=== PATIENT | female | born 1990 | race Caucasian/White ===

== ENCOUNTER 2019-07-01 04:36 | Emergency (ER) | payer SELFPAY ==
[~2019-07-01] VITALS: Ht 170.2 cm; Wt 59.0 kg
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
--- NOTE | 2019-07-01 04:52 | NUR ---
PT ELBA PALCED IN LOCKER, PT PLACED IN GOWN. VSS.
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
[2019-07-01 05:36] LABS: BASOPHILS % (AUTO) 0.5 % (0.0-2.0); EOSINOPHILS % (AUTO) 4.6 % (0.0-6.0); HEMATOCRIT 48 % (33-45); HEMOGLOBIN 15.9 g/dL (11.5-14.8); LYMPHOCYTES # (AUTO) 1.6 /CMM (0.8-4.8); LYMPHOCYTES % (AUTO) 15.8 % (20.0-44.0); MEAN CORPUSCULAR HGB CONC 33 g/dl (31.0-36.0); MEAN CORPUSCULAR VOLUME 94 fL (82-100); MONOCYTES # (AUTO) 0.7 /CMM (0.1-1.30); MONOCYTES % (AUTO) 6.7 % (2.0-12.0); NEUTROPHILS # (AUTO) 7.5 /CMM (1.8-8.9); NEUTROPHILS % (AUTO) 72.4 % (43.0-81.0); PLATELET COUNT (AUTO) 310 /CMM (150-450); RED BLOOD CELL COUNT(AUTO) 5.07 MIL/uL (4.0-5.2); WHITE BLOOD COUNT (AUTO) 10.4 K/uL (4.3-11.0)
[2019-07-01 05:44] LABS: CALCIUM, SERUM 9.6 mg/dL (8.5-10.1); CARBON DIOXIDE 27 mmol/L (21-32); CHLORIDE 101 mmol/L (98-107); GLUCOSE 93 mg/dL (74-106); POTASSIUM 4.6 mmol/L (3.5-5.1); SODIUM SERUM 137 mmol/L (136-145); UREA NITROGEN, BLOOD 19 mg/dL (7-18)
[2019-07-01 05:50] LABS: ACETAMINOPHEN 0 ug/ml (10-30); ALANINE AMINOTRANSFERASE 13 U/L (12-78); ALCOHOL, BLOOD < 3 mg/dL (0-0); ALKALINE PHOSPHATASE 62 U/L (46-116); ASPARTATE AMINOTRANSFERASE 16 U/L (15-37); BILIRUBIN,DIRECT 0.3 mg/dL (0.0-0.2); BILIRUBIN,TOTAL 1.3 mg/dL (0.2-1.0); SALICYLATE < 0.2 mg/dL (2.8-20.0)
[2019-07-01] MEDS ORDERED: TDAP [DIPH/PERTUSSIS/TET] 0.5 ML VIAL IM ONE ×2 (05:58→06:00)
--- NOTE | 2019-07-01 06:06 | NUR ---
PATIENT UNABLE TO GIVE URINE SAMPLE, PROVIDED WITH WATER.
--- NOTE | 2019-07-01 06:06 | NUR ---
EMT AT BEDSIDE FOR WOUND CARE ON LEFT SHOULDER
--- NOTE | 2019-07-01 09:00 | NUR ---
Patient is awake alert non distress @ this time remain 5150 no family patient able to ambulated urine obtained and send to lab ,breakfast given ,sitter @ bedside .
--- NOTE | 2019-07-01 09:38 | NUR ---
Patient brother called Tony Stanley [phone]
--- NOTE | 2019-07-01 09:39 | NUR ---
PAGED REUBEN, NO ANSWER, LEFT MESSGAGE.
--- NOTE | 2019-07-01 10:29 | NUR ---
REUBEN CALLED BACK. WILL SHOW UP IN 1 HOUR.
--- NOTE | 2019-07-01 10:42 | NUR ---
Patient asleep but arousable remain 5150 patient calm @ this time non distress continue to monitor
--- NOTE | 2019-07-01 13:35 | NUR ---
Patient awake alert noted ambulatory .patient declined custodial stated her Mom is coming to pick her up.
--- NOTE | 2019-07-01 13:36 | NUR ---
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
--- NOTE | 2019-07-01 14:30 | NUR ---
PATIENT STATED mOM IS COMING TO PICK HER UP ,PATIENT AMBULATORY DECLINED [facility] GOING BACK TO PREVIOUS LIVING ARRANGEMENT SHE STATES SHE WILL WAIT FOR HER MOM @ WAITING AREA
[2019-07-01 14:34] VITALS: BP 133/78
== END 2019-07-01 14:35 | disposition home or self-care (01) ==
LOC: ER 04:36
DX: S80.01XA Contusion of right knee, initial encounter (principal); S40.212A Abrasion of left shoulder, initial encounter; T76.91XA Unspecified adult maltreatment, suspected, initial encounter; F32.9 Major depressive disorder, single episode, unspecified; Z59.0 Homelessness; Y08.89XA Assault by other specified means, initial encounter; Y93.89 Activity, other specified; Y92.89 Other specified places as the place of occurrence of the external cause; Y99.8 Other external cause status
CPT/HCPCS: 36415; 80048; 80076; 80305; 80307; 80329; 84703; 85025; 90471; 90715; 99285; G0480

== ENCOUNTER 2021-04-05 10:50 | Emergency (ER) | payer SELFPAY ==
[~2021-04-05] VITALS: Ht 170.2 cm; Wt 66.2 kg
[2021-04-05 11:07] VITALS: BP 126/79
--- NOTE | 2021-04-05 11:08 | NUR ---
[id number] home c/o headache, weakness, nausea since yesterday. PT A/OX4. TOLERATING R/A WELL WITH NO SOB.
[2021-04-05] MEDS ORDERED: KETOROLAC TROMETHAMINE INJ 30 MG/ML VIAL ONE (11:26)
[2021-04-05] MEDS ORDERED: KETOROLAC TROMETHAMINE INJ 60 MG/2 ML VIAL IM ONE (11:30)
--- NOTE | 2021-04-05 11:54 | NUR ---
COVID ANTIEN AND INFLUENZA SWAB COLLECTED AND SENT TO LAB
--- NOTE | 2021-04-05 12:03 | NUR ---
URINE SAMPLE COLLECTED AND SENT TO LAB
--- NOTE | 2021-04-05 12:50 | NUR ---
YRIS, MOM, , CALLED.
--- NOTE | 2021-04-05 13:09 | NUR ---
WHEELED OUT VIA GURNEY BY [employer] FOR CT SCAN.
[2021-04-05] MEDS ORDERED: HYDR-3980 PO (13:56)
--- NOTE | 2021-04-05 14:07 | NUR ---
Patient discharged to home in stable condition. Written and verbal after care instructions given. Patient verbalizes understanding of instruction.
== END 2021-04-05 14:08 | disposition home or self-care (01) ==
LOC: ER 10:57
DX: U07.1 COVID-19 (principal); R51.9 Headache, unspecified; F32.9 Major depressive disorder, single episode, unspecified; Z79.899 Other long term (current) drug therapy
CPT/HCPCS: 70450; 84703; 87426; 87804; 96372; 99284; C9803; J1885

== ENCOUNTER 2021-06-12 18:16 | Emergency (ER) | payer OTHER, SELFPAY ==
[~2021-06-12] VITALS: Ht 167.6 cm; Wt 59.0 kg
[~2021-06-12 18:16] MED LIST: HYDR-3980 PO
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
[2021-06-12 18:31] VITALS: BP 126/100
--- NOTE | 2021-06-12 18:39 | NUR ---
DR TA AT BEDSIDE FOR EVAL
[2021-06-12] MEDS ORDERED: AMOX-430 PO (18:54)
[2021-06-12] MEDS ORDERED: RABIES IMMUNE GLOBULIN/PF 150 UNIT/ML VIAL IM ONE (19:00)
[2021-06-12] MEDS ORDERED: RABIES VACCINE (PCEC)/PF 1 EA KIT IM ONE (19:00)
[2021-06-12] MEDS ORDERED: TDAP [DIPH/PERTUSSIS/TET] 0.5 ML VIAL IM ONE ×2 (19:00→19:18)
--- NOTE | 2021-06-12 19:41 | NUR ---
Patient discharged to home in stable condition. Written and verbal after care instructions given. Patient verbalizes understanding of instruction.
== END 2021-06-12 19:41 | disposition home or self-care (01) ==
LOC: ER 18:22
DX: S01.85XA Open bite of other part of head, initial encounter (principal); F32.A Depression, unspecified; W54.0XXA Bitten by dog, initial encounter; Y93.89 Activity, other specified; Y92.89 Other specified places as the place of occurrence of the external cause; Y99.8 Other external cause status
CPT/HCPCS: 90375; 90715

== ENCOUNTER 2021-06-15 17:53 | Emergency (ER) | payer SELFPAY ==
[~2021-06-15] VITALS: Ht 170.2 cm; Wt 63.5 kg
[~2021-06-15 17:53] MED LIST changes: +AMOX-430 PO
[2021-06-15 18:08] VITALS: BP 136/60
--- NOTE | 2021-06-15 18:40 | NUR ---
Patient discharged to home in stable condition. Written and verbal after care instructions given. Patient verbalizes understanding of instruction.
== END 2021-06-15 18:41 | disposition home or self-care (01) ==
LOC: ER 17:56
DX: S01.85XD Open bite of other part of head, subsequent encounter (principal); W54.0XXD Bitten by dog, subsequent encounter